=== PATIENT | male | born 1965 | race African-American/Black ===

== ENCOUNTER 2022-10-04 12:33 | Emergency (ER) | payer OTHER ==
[~2022-10-04] VITALS: Ht 177.8 cm; Wt 52.7 kg
[2022-10-04 12:42] VITALS: BP 121/81; PULSE 68; RESP 18; TEMP 98.6; O2SAT 98
[2022-10-04] MEDS ORDERED: IBUP-2029 MT (16:36)
[2022-10-04] MEDS ORDERED: CYCL5TAB PO (16:36)
== END 2022-10-04 17:05 | disposition home or self-care (01) ==
LOC: ER 12:33
DX: M54.2 Cervicalgia (principal); I10 Essential (primary) hypertension; J44.1 Chronic obstructive pulmonary disease with (acute) exacerbation; Z91.041 Radiographic dye allergy status
CPT/HCPCS: 99284